=== PATIENT | male | born 1940 | race Caucasian/White ===

== ENCOUNTER → 2018-05-20 | Outpatient (CLI) | payer MEDICARE, BC ==
[~2018-05-20] MED LIST: ACIDOPHILUS1 EAC4 PO; CIPRO500 MG PO; COZAAR 50 MG TA50 M1 PO; FLAGYL500 MG PO; FLEXERIL PO; HYDROCODONE-AP1 EAC6 PO; MIRALAX17 GM PO; NICOTINE TRANSD21 M1 TRANSDERM; NORCO 5-325 TA1 EACH PO
== END ==
LOC: M.LAB 07:05 → M.MRI 08:30
DX: M47.26 Other spondylosis with radiculopathy, lumbar region (principal); M48.061 Spinal stenosis, lumbar region without neurogenic claudication; M51.26 Other intervertebral disc displacement, lumbar region

== ENCOUNTER 2018-09-25 10:05 | Inpatient (IN) | payer MEDICARE, BC ==
[~2018-09-25] VITALS: Ht 185.4 cm; Wt 99.3 kg
[2018-09-25 10:10] VITALS: BP 155/70
[2018-09-25] MEDS ORDERED: SINGULAIR 10 MG10 MG PO (10:15)
[2018-09-25] MEDS ORDERED: SYMBICORT160 MCG/4. INH (10:16)
[2018-09-25] MEDS ORDERED: AUGMENTIN 875-1 EACH PO (10:16)
[2018-09-25 10:33] LABS: HEMATOCRIT 39.2 % (42.0-52.0); HEMOGLOBIN 12.9 gm/dL (14.0-18.0); MCH 30.2 pg (26.0-34.0); MCHC 32.8 g/dL (28.0-37.0); NUCLEATED RBCS 0 /100WBC; PLATELET COUNT* 322 thou/uL (150-400); RBC 4.26 mil/uL (4.50-6.00); RDW-CV 14.6 % (10.5-14.5)
[2018-09-25 10:42] LABS: ANION GAP 8 mmol/L (7-16); BUN 22 mg/dL (7-18); CALCIUM 8.3 mg/dL (8.5-10.1); CHLORIDE 101 mmol/L (98-107); CO2 27 mmol/L (21-32); CREATININE 1.1 mg/dL (0.6-1.3); GLUCOSE 108 mg/dL (70-99); POTASSIUM 4.3 mmol/L (3.5-5.1); SODIUM 136 mmol/L (136-145)
[2018-09-25 10:52] LABS: BE 0.5 mmol/L (-2 to +3); PCO2 36.3 mmHg (35.0-45.0); pH 7.443 (7.340-7.450)
[2018-09-25 10:56] LABS: ALKALINE PHOSPHATASE 84 U/L (46-116); NT-PRO BRAIN NAT PEPTIDE 5163 pg/mL (<300); SGOT 18 U/L (15-37); SGPT 24 U/L (30-65); TOTAL BILIRUBIN 0.5 mg/dL (<0.1-1.0); TOTAL PROTEIN 6.4 g/dL (6.4-8.2); TROPONIN-I LEVEL <0.06 ng/mL (<0.06)
[2018-09-25 11:25] LABS: ABSOLUTE BASOPHILS 0.2 thou/uL (0.0-0.2); ABSOLUTE LYMPHOCYTES 1.8 thou/uL (0.8-5.3); ABSOLUTE MONOCYTES 1.8 thou/uL (0.0-1.2); ABSOLUTE NEUTROPHILS 19.1 thou/uL (1.6-8.1); METAMYELOCYTES 2 %
[2018-09-25 11:26] LABS: LARGE PLATELETS OCCASIONAL; PLATELET ESTIMATE ADEQUATE
[2018-09-25 11:27] LABS: MICROCYTES 1+; TOXIC GRANULATION 3+
--- NOTE | 2018-09-25 17:41 | EKG ---
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 : 1940 Requested By: Renetta Romano Order Number: [id number] MD: Reggie Vieira Measurements Intervals [place] Rate: 88 P: -56 [place]: 158 QRS: 49 QRSD: 93 T: 42 QT: 353 QTc: 427 Interpretive Statements Sinus rhythm with frequent and consecutive premature atrial complexes Left ventricular hypertrophy Compared to ECG 12/30/2016 12:12:01 Left ventricular hypertrophy now present Ectopic atrial rhythm no longer present Myocardial infarct finding no longer present ST (T wave) deviation no longer present Electronically Signed On 09-25-2018 17:41:01 CDT by Reggie Vieira [email or web address] <ELECTRONICALLY SIGNED> By: Reggie Vieira MD, FACC 09/25/18 1741 1011 1011 Reggie Vieira MD, FAC /EPI
[2018-09-25 17:49] VITALS: BP 113/92
[2018-09-25 18:47] VITALS: BP 134/68
[2018-09-25 20:00] VITALS: BP 124/62
[2018-09-25 23:57] VITALS: BP 131/66
[2018-09-26] VITALS (7 sets, daily range): BP systolic 120–153; BP diastolic 61–93
[2018-09-26 03:58] LABS: URINE BILIRUBIN NEGATIVE (Negative); URINE BLOOD NEGATIVE (Negative); URINE CLARITY CLEAR; URINE COLOR YELLOW; URINE GLUCOSE-RANDOM NEGATIVE (Negative); URINE KETONES TRACE (Negative); URINE LEUKOCYTES-REFLEX NEGATIVE (Negative); URINE NITRITE-REFLEX NEGATIVE (Negative); URINE PROTEIN TRACE (Negative); URINE SPECIFIC GRAVITY >= 1.030 (1.005-1.030); URINE UROBILINOGEN 0.2 E.U./dl (0.2-1.0)
[2018-09-26 11:39] LABS: ABSOLUTE LYMPHOCYTES 1.1 thou/uL (0.8-5.3); ABSOLUTE MONOCYTES 0.9 thou/uL (0.0-1.2); ABSOLUTE NEUTROPHILS 16.3 thou/uL (1.6-8.1); BASOPHILS 0.2 %; EOSINOPHILS 0.1 %; HEMATOCRIT 37.7 % (42.0-52.0); HEMOGLOBIN 11.8 gm/dL (14.0-18.0); MCH 29.5 pg (26.0-34.0); MCHC 31.3 g/dL (28.0-37.0); MCV 94.2 fL (80.0-100.0); MPV 10.9 fl. (7.2-11.1); NUCLEATED RBCS 0 /100WBC; PLATELET COUNT* 303 thou/uL (150-400); POLYS 88.7 %; RDW-CV 14.6 % (10.5-14.5); WBC 18.4 thou/uL (4.0-11.0)
[2018-09-26 11:43] LABS: CALCIUM 8.5 mg/dL (8.5-10.1); CREATININE 1.2 mg/dL (0.6-1.3); MAGNESIUM 1.9 mg/dL (1.8-2.4); POTASSIUM 4.8 mmol/L (3.5-5.1)
--- NOTE | 2018-09-26 16:12 | 2DMMODE ---
[place] [address] 2 D/M-MODE ECHOCARDIOGRAM Name: MARCELLO CARLIN Room: [address] IN [facility]#: [id number] Admission: 09/25/18 Attend Phys: Cosme Nation Discharge: Date of : 36 Date of Service: 09/26/18 1611 Report #: [id number] THIS REPORT FOR: //name// APPROVED REPORT Study performed: 09/26/2018 14:10:17 EXAM: Comprehensive 2D, Doppler, and color-flow Echocardiogram Patient Location: In-Patient Room #: [facility] Status: routine BSA: 2.12 HR: 72 bpm BP: 133/61 mmHg Rhythm: NSR Other Information Study Quality: Adequate Indications Congestive Heart Failure 2D Dimensions IVSd: 10.67 (7-11mm) LVOT Diam: 21.05 (18-24mm) LVDd: 53.36 mm PWd: 12.30 (7-11mm) Ascending Ao: 36.82 (22-36mm) LVDs: 30.86 (25-40mm) Aortic Root: 41.24 mm Volumes Left Atrial Volume (Systole) LA ESV Index: 31.70 mL/m2 Aortic Valve AoV Peak Hawk.: 1.29 m/s AO Peak Gr.: 6.65 mmHg LVOT Max P.67 mmHg AO Mean Gr.: 3.77 mmHg LVOT Mean P.96 mmHg LVOT Max V: 1.08 m/s AO V2 VTI: 25.66 cm LVOT Mean V: 0.64 m/s YANNA (VTI): 3.03 cm2 LVOT V1 VTI: 22.37 cm Mitral Valve E/A Ratio: 0.86 MV Decel. Time: 215.95 ms MV E Max Hawk.: 0.79 m/[place] [address] 2 D/M-MODE ECHOCARDIOGRAM Name: MARCELLO CARLIN Room: [address] IN .R.#: [id number] Admission: 09/25/18 Attend Phys: Cosme Nation Discharge: Date of : 36 Date of Service: 09/26/18 1611 Report #: [id number] MV PHT: 62.62 ms MVA (PHT): 3.51 cm2 TDI E/Lateral E': 8.78 E/Medial E': 9.88 Medial E' Hawk.: 0.08 m/s Lateral E' Hawk.: 0.09 m/s Pulmonary Valve PV Peak Hawk.: 0.91 m/s PV Peak Gr.: 3.33 mmHg Left Ventricle The left ventricle is normal size. There is normal LV segmental wall motion. There is normal left ventricular wall thickness. Left ventricular systolic function is normal. The left ventricular ejection fraction is within the normal range. LVEF is 55-60%. The left ventricular diastolic function is normal. Right Ventricle The right ventricle is normal size. The right ventricular systolic function is normal. Atria Left atrium is mildly dilated. The right atrium size is normal. Aortic Valve The Aortic valve is sclerotic. Trace aortic regurgitation. There is no aortic valvular stenosis. Mitral Valve The mitral valve is normal in structure. There is no mitral valve regurgitation noted. No evidence of mitral valve stenosis. Tricuspid Valve The tricuspid valve is normal in structure. Trace tricuspid regurgitation. Unable to assess PA pressure. Pulmonic Valve The pulmonary valve is normal in structure. Trace pulmonic regurgitation. Great Vessels Aortic root is mildly dilated. IVC is normal in size and collapses >50% [place] [address] 2 D/M-MODE ECHOCARDIOGRAM Name: MARCELLO CARLIN Room: [address] IN [facility]#: [id number] Admission: 09/25/18 Attend Phys: Cosme Nation Discharge: Date of : 36 Date of Service: 09/26/18 1611 Report #: [id number] Pericardium There is no pericardial effusion. <Conclusion> LVEF is 55-60%. Left atrium is mildly dilated. The Aortic valve is sclerotic. <ELECTRONICALLY SIGNED> By: Jaron Tang MD, [facility] 09/26/181610 10 10 Jaron Tang MD, [facility] /INF
[2018-09-27] VITALS: BP 121/59
[2018-09-27 04:00] VITALS: BP 147/73
[2018-09-27 05:00] LABS: ABSOLUTE BASOPHILS 0.1 thou/uL (0.0-0.2); ABSOLUTE LYMPHOCYTES 1.6 thou/uL (0.8-5.3); ABSOLUTE MONOCYTES 2.2 thou/uL (0.0-1.2); ABSOLUTE NEUTROPHILS 17.5 thou/uL (1.6-8.1); BASOPHILS 0.6 %; EOSINOPHILS 0.2 %; HEMATOCRIT 37.2 % (42.0-52.0); HEMOGLOBIN 12.1 gm/dL (14.0-18.0); LYMPHOCYTES 7.6 %; MCH 30.1 pg (26.0-34.0); MCHC 32.4 g/dL (28.0-37.0); MONOCYTES 10.4 %; MPV 10.4 fl. (7.2-11.1); NUCLEATED RBCS 0 /100WBC; PLATELET COUNT* 313 thou/uL (150-400); POLYS 81.2 %; RDW-CV 14.2 % (10.5-14.5); WBC 21.5 thou/uL (4.0-11.0)
[2018-09-27 07:00] VITALS: BP 138/74
--- NOTE | 2018-09-27 09:49 | CON ---
[address] [address] CONSULTATION Name: MARCELLO CARLIN Room: [address] IN M.R.#: [id number] Admission: 09/25/18 Attend Phys: Robyn Tan Discharge: Date of : 36 Report #: [id number] THIS REPORT FOR: //name// CC: Kailash Elio Cosme Nation DATE OF SERVICE: 09/26/2018 INFECTIOUS DISEASE CONSULTATION ATTENDING PHYSICIAN: Cosme Nation M.D. REASON FOR EVALUATION: Left-sided pneumonitis. HISTORY OF PRESENT ILLNESS: Chart reviewed, the patient examined. This is a 77-year-old, known history of COPD, long time smoker, who presented to the Emergency Room with progressive dyspnea and weakness. He has had a cough productive of some yellowish sputum. It is not clear that he has had any significant fevers, although he has had low-grade temperature elevations while here. He was evaluated and was found to be borderline hypoxemic. Chest x-ray showed evidence of left-sided patchy infiltrates that were fairly extensive. He was presumptively diagnosed with bacterial pneumonitis, placed on combination antimicrobial therapy with levofloxacin as well as piperacillin and tazobactam. He states he feels moderately improved from his admission. He is maintained on supplemental oxygen at 2 liters per nasal cannula. ALLERGIES: None known. CURRENT MEDICATIONS: Include losartan, acetylcysteine, montelukast, hydrocodone, Zosyn, ipratropium, albuterol inhaler and levofloxacin. PAST MEDICAL HISTORY: Underlying COPD and history of hypertension, has had previous back surgery. SOCIAL HISTORY: He smokes half to one pack per day for the last 50-60 years. No illicit drug use. He has regular ethanol up to 2-3 beers a day. He notes he is still working. FAMILY HISTORY: Noncontributory. REVIEW OF SYSTEMS: Otherwise, unremarkable 10-point review of systems, with the exception of the above. He does have some anorexia with some weight loss overtime. PHYSICAL EXAMINATION: GENERAL: He is alert, cooperative. He is in [id number] [address] CONSULTATION Name: MARCELLO CARLIN Donell Room: [address] IN [facility]#: [id number] Admission: 09/25/18 Attend Phys: Robyn Tan Discharge: Date of : 38 Report #: [id number] secondary to respiratory difficulty. He appears to be generally lucid, mildly chronically ill appearing. VITAL SIGNS: Temperature 97.4, pulse 79, respirations 20 and blood pressure 125/61. SKIN: Warm, dry. No rashes. HEENT: Normocephalic. Extraocular muscles intact. NECK: Supple. LUNGS: Diminished to some extent overall, few scattered coarse breath sounds. HEART: Regular. He has a soft systolic murmur. ABDOMEN: Soft, nontender and nondistended. EXTREMITIES: Without cyanosis. GENITOURINARY: Deferred. RECTAL: Deferred. LABORATORY DATA: Initial chest x-ray as described above, patchy left-sided infiltrate consistent with pneumonitis. ABGs: A pH of 7.443, pCO2 of 36.3 and pO2 of 67.0 on 2 liters. Lactic acid 1.4. Electrolytes: Sodium 136, potassium 4.3, chloride 101, bicarbonate 27, anion gap of 8 and BUN and creatinine 22 and 1.1. LFTs unremarkable. Total protein 64. Albumin of 2.0. CBC: White count initially 23, H and H 12.9 and 39.2 and platelets of 322,000, neutrophilia and monocytosis. Repeat CBC today showed a white count down to 18.4, H and H 11.8 and 37.7. Prealbumin of 10.1. Blood cultures sterile thus far. Urinalysis otherwise unremarkable. ASSESSMENT AND PLAN: Left-sided pneumonitis, certainly likely bacterial etiology. We will continue empiric antimicrobial therapy. We would not expect multiple-resistant organism that will try to back off fairly quickly. He has not had a Pneumovax. He has been on several therapies. Other antigens will be helpful. We will do an MRSA just to confirm. He states he is feeling better. We will wean off support as allowed. <ELECTRONICALLY SIGNED> By: Pillo Edge MD 09/27/18 0949 1350 [id number] Edge MD /nt
[2018-09-27 12:00] VITALS: BP 130/76
[2018-09-27 16:26] VITALS: BP 143/65
[2018-09-27 20:00] VITALS: BP 140/56
[2018-09-28] VITALS (7 sets, daily range): BP systolic 101–144; BP diastolic 45–84
[2018-09-28 12:35] LABS: HEMATOCRIT 39.2 % (42.0-52.0); HEMOGLOBIN 12.7 gm/dL (14.0-18.0); MCH 29.8 pg (26.0-34.0); MCHC 32.3 g/dL (28.0-37.0); MCV 92.2 fL (80.0-100.0); MPV 10.5 fl. (7.2-11.1); NUCLEATED RBCS 0 /100WBC; PLATELET COUNT* 294 thou/uL (150-400); RBC 4.25 mil/uL (4.50-6.00); RDW-CV 14.4 % (10.5-14.5); WBC 20.7 thou/uL (4.0-11.0)
[2018-09-28 12:42] LABS: ALBUMIN 2.1 g/dL (3.4-5.0); CALCIUM 8.5 mg/dL (8.5-10.1); CREATININE 1.2 mg/dL (0.6-1.3); POTASSIUM 3.6 mmol/L (3.5-5.1); TOTAL BILIRUBIN 0.7 mg/dL (<0.1-1.0); TOTAL PROTEIN 6.2 g/dL (6.4-8.2)
[2018-09-28 13:29] LABS: ESR (SEDRATE) 25 mm/hr (0-20)
[2018-09-28 13:30] LABS: ABSOLUTE MONOCYTES 2.3 thou/uL (0.0-1.2); ABSOLUTE NEUTROPHILS 17.4 thou/uL (1.6-8.1)
[2018-09-28 13:31] LABS: PLATELET ESTIMATE ADEQUATE
[2018-09-29] VITALS: BP 107/55
[2018-09-29 04:00] VITALS: BP 138/63
[2018-09-29 05:10] LABS: HEMATOCRIT 38.1 % (42.0-52.0); HEMOGLOBIN 12.3 gm/dL (14.0-18.0); MCHC 32.4 g/dL (28.0-37.0); MCV 92.6 fL (80.0-100.0); MPV 11.3 fl. (7.2-11.1); RBC 4.12 mil/uL (4.50-6.00); RDW-CV 14.3 % (10.5-14.5); WBC 21.3 thou/uL (4.0-11.0)
[2018-09-29 05:38] LABS: CALCIUM 8.8 mg/dL (8.5-10.1); CREATININE 1.2 mg/dL (0.6-1.3); MAGNESIUM 1.8 mg/dL (1.8-2.4); POTASSIUM 3.6 mmol/L (3.5-5.1)
[2018-09-29 07:10] VITALS: BP 117/62
--- NOTE | 2018-09-29 10:49 | CON ---
[address] [address] CONSULTATION Name: MARCELLO CARLIN Room: [address] IN M.R.#: [id number] Admission: 09/25/18 Attend Phys: Robyn Tan Discharge: Date of : 38 Report #: [id number] THIS REPORT FOR: //name// CC: Kailash Elio Cosme Nation DATE OF SERVICE: 09/27/2018 REASON FOR EVALUATION: Severe pneumonia, cough, hypoxemia. HISTORY OF PRESENT ILLNESS: History obtained from the chart, from the patient and his and records. He is a 77-year-old gentleman known to have COPD. He presented with progressive dyspnea, cough. His cough was productive of yellow mucus. Initially, he went to outpatient care; however, he stayed home for 5 days with progressive symptoms with worsening shortness of breath and cough. The cough is productive of yellow mucus. He is currently on oxygen with nasal cannula. He denies any hemoptysis. Denies night sweats. He feels that his cough is better. He is currently on treatment with Zosyn and Levaquin. He is on 2 liters nasal cannula. History noted also for drinking alcohol around 2 beers a day. Denies any history of dysphagia. ALLERGIES: None. HOME MEDICATIONS: Reviewed including Singulair, hydrocodone, Zosyn, these are current medications. Levaquin, losartan. PAST MEDICAL HISTORY: COPD, hypertension. PAST SURGICAL HISTORY: Back surgery. SOCIAL HISTORY: Smokes 1/2 a pack per day for the last 60 years. Regular alcohol of 3 beers a day. FAMILY HISTORY: Noncontributory. REVIEW OF SYSTEMS: A 12-point review of systems significant for lower extremity joint pain. Denies night sweats; however, had some anorexia with associated pneumonia. Has alcohol use, has shortness of breath with history of COPD, otherwise 14-point review of systems as above. PHYSICAL EXAMINATION: GENERAL: The patient is pleasant, not in distress. VITAL SIGNS: Noted. He is currently on 1 liter. He is afebrile. His blood pressure is 138/74. Oxygen saturation was 94%. HEAD AND NECK: Neck supple. Oral mucosa clear. CHEST: Has equal breath sounds. No wheezing[place] [address] CONSULTATION Name: MARCELLO CARLIN Donell Room: [address] IN [facility].#: [id number] Admission: 09/25/18 Attend Phys: Robyn Tan Discharge: Date of : 38 Report #: [id number] CARDIOVASCULAR: Regular rhythm. ABDOMEN: Soft, nontender. EXTREMITIES: No significant edema or swelling. PSYCHIATRIC: Alert, oriented. NEUROLOGIC: No focal deficit. SKIN: No changes. JOINTS: No deformity noted. LABORATORY DATA AND OTHER DATABASE: Chest x-ray, which I have reviewed, showed left-sided patchy infiltrate. Chest CT, which I reviewed as well showed emphysematous changes. He has necrotizing infiltrate in the left upper lobe, extensive. Associated consolidation with cavitary lesion. Enlarged mediastinal lymph nodes with largest measuring 3 cm in prevascular space. He has cavitary lesion measuring 3.1 cm. Other labs, white blood cell count 21.5. On 09/25/2018, it was 23,000, hemoglobin 12. His creatinine 1.2. MRSA of the nares is pending. ASSESSMENT AND PLAN: 1. Community-acquired pneumonia, necrotizing, cavitary. At this time, he is on Levaquin and Zosyn, cannot exclude methicillin-resistant Staphylococcus aureus. Recommend while waiting for culture to add vancomycin. Differential diagnosis, suspect related to aspiration. The patient has history of alcohol abuse, likely may need speech evaluation. 2. Chronic obstructive pulmonary disease, currently not in exacerbation. Recommended nebulizer treatment. Currently shows clinical improvement. Recommend to continue to monitor white blood cell counts. 3. With the clinical improvement, other alternative, etiology is less likely. With severe cavitary lesion, may need treatment similar to lung abscess with prolonged antibiotic treatment as per ID. This was discussed with the patient and his . <ELECTRONICALLY SIGNED> By: Suri Arevalo MD 09/29/18 1049 1247 [id number] Arevalo MD /nt
[2018-09-29 11:52] VITALS: BP 101/41
[2018-09-29 16:49] VITALS: BP 125/50
[2018-09-29 20:00] VITALS: BP 118/51
[2018-09-30] VITALS: BP 118/56
[2018-09-30 04:00] VITALS: BP 115/64; BP 95/60
[2018-09-30 07:10] VITALS: BP 111/93
[2018-09-30 13:43] VITALS: BP 120/86
[2018-09-30 18:38] VITALS: BP 115/60
[2018-09-30 20:00] VITALS: BP 103/70
[2018-10-01] VITALS: BP 122/92
[2018-10-01 04:00] VITALS: BP 123/51
[2018-10-01 05:12] LABS: HEMATOCRIT 33.8 % (42.0-52.0); HEMOGLOBIN 11.5 gm/dL (14.0-18.0); MCH 31.6 pg (26.0-34.0); MCHC 33.9 g/dL (28.0-37.0); MCV 93.1 fL (80.0-100.0); MPV 11.2 fl. (7.2-11.1); RBC 3.63 mil/uL (4.50-6.00); RDW-CV 14.5 % (10.5-14.5); WBC 23.1 thou/uL (4.0-11.0)
[2018-10-01 05:20] LABS: ALBUMIN 1.8 g/dL (3.4-5.0); CALCIUM 8.2 mg/dL (8.5-10.1); CREATININE 1.3 mg/dL (0.6-1.3); MAGNESIUM 1.8 mg/dL (1.8-2.4); POTASSIUM 3.7 mmol/L (3.5-5.1); TOTAL BILIRUBIN 0.5 mg/dL (<0.1-1.0); TOTAL PROTEIN 5.9 g/dL (6.4-8.2)
[2018-10-01 08:00] VITALS: BP 115/54
--- NOTE | 2018-10-01 11:22 | EKG ---
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 : 1940 Requested By: Renny Cota Order Number: [id number] Reading MD: Jaron Tang Measurements Intervals [place] Rate: 111 P: MO: QRS: 55 QRSD: 93 T: 174 QT: 349 QTc: 474 Interpretive Statements Atrial fibrillation Anteroseptal infarct, old Repol abnrm suggests ischemia, anterolateral Compared to ECG 09/25/2018 10:11:48 Sinus rhythm no longer present Left ventricular hypertrophy no longer present Electronically Signed On 10-01-2018 11:22:08 CDT by Jaron Tang [email or web address] <ELECTRONICALLY SIGNED> By: Jaron Tang MD, FAC 10/01/18 1122 1616 1616 Jaron Tang MD, [facility] /EPI
[2018-10-01 12:08] VITALS: BP 116/47
[2018-10-01 15:48] VITALS: BP 100/52
[2018-10-01 20:00] VITALS: BP 121/54
[2018-10-02] VITALS: BP 134/65
[2018-10-02 04:00] VITALS: BP 133/63
[2018-10-02 04:50] LABS: ABSOLUTE BASOPHILS 0.2 thou/uL (0.0-0.2); ABSOLUTE EOSINOPHILS 0.3 thou/uL (0.0-0.7); ABSOLUTE LYMPHOCYTES 1.1 thou/uL (0.8-5.3); ABSOLUTE MONOCYTES 2.2 thou/uL (0.0-1.2); ABSOLUTE NEUTROPHILS 11.9 thou/uL (1.6-8.1); BASOPHILS 1.2 %; EOSINOPHILS 1.9 %; HEMOGLOBIN 10.6 gm/dL (14.0-18.0); LYMPHOCYTES 6.8 %; MCV 93.7 fL (80.0-100.0); MONOCYTES 13.8 %; NUCLEATED RBCS 0 /100WBC; PLATELET COUNT* 342 thou/uL (150-400); POLYS 76.3 %; RBC 3.63 mil/uL (4.50-6.00); RDW-CV 14.7 % (10.5-14.5); WBC 15.6 thou/uL (4.0-11.0)
[2018-10-02 05:30] LABS: ALBUMIN 1.7 g/dL (3.4-5.0); ALKALINE PHOSPHATASE 66 U/L (46-116); ANION GAP 3 mmol/L (7-16); BUN 30 mg/dL (7-18); CALCIUM 8.7 mg/dL (8.5-10.1); CHLORIDE 102 mmol/L (98-107); CHOLESTEROL 89 mg/dL (<200); CO2 33 mmol/L (21-32); CREATININE 1.4 mg/dL (0.6-1.3); GLUCOSE 98 mg/dL (70-99); HDL CHOLESTEROL 24 mg/dL (>40); LDL CHOLESTEROL 58 mg/dL (<100); MAGNESIUM 1.8 mg/dL (1.8-2.4); POTASSIUM 4.7 mmol/L (3.5-5.1); SGOT 15 U/L (15-37); SGPT 19 U/L (30-65); SODIUM 138 mmol/L (136-145); TC:HDL 3.7 Ratio (Not establshd); TOTAL BILIRUBIN 0.4 mg/dL (<0.1-1.0); TOTAL PROTEIN 5.7 g/dL (6.4-8.2); TRIGLYCERIDE 37 mg/dL (<150); VLDL 7 mg/dL (<40)
[2018-10-02 05:36] LABS: SERUM ASSESSMENT CLEAR
[2018-10-02 08:00] VITALS: BP 120/60
[2018-10-02 11:30] VITALS: BP 132/59
--- NOTE | 2018-10-02 13:04 | EKG ---
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: : 1940 Requested By: Jaron Tang Order Number: [id number] MD: Reggie Vieira Measurements Intervals [place] Rate: 53 P: -47 [place]: 201 QRS: 63 QRSD: 104 T: 79 QT: 487 QTc: 458 Interpretive Statements Sinus or ectopic atrial rhythm Consider left atrial enlargement Compared to ECG 09/30/2018 16:16:46 Ectopic atrial rhythm now present Atrial fibrillation no longer present Myocardial infarct finding no longer present Possible ischemia no longer present Electronically Signed On 10-02-2018 13:04:41 CDT by Reggie Vieira [email or web address] <ELECTRONICALLY SIGNED> By: Reggie Vieira MD, FAC 10/02/18 1304 0857 0857 Reggie Vieira MD, [facility] /EPI
--- NOTE | 2018-10-02 16:07 | CON ---
[address] [address] CONSULTATION Name: MARCELLO CARLIN Room: [address] IN M.R.#: [id number] Admission: 09/25/18 Attend Phys: Robyn Tan Discharge: Date of : 38 Report #: [id number] THIS REPORT FOR: //name// CC: Kailash Ballard DO Cosme Nation DATE OF SERVICE: 10/01/2018 CARDIOLOGY CONSULTATION HISTORY OF PRESENT ILLNESS: The patient is a 77-year-old white male who I was asked to see in the hospital today after he was noted to be in atrial fibrillation. The history is obtained from the patient as well as his who was present. The patient denies previous history of heart disease. He was doing well until about 5 days ago, he developed increasing shortness of breath and a cough. His brought him to the Emergency Room last week and he was admitted. He was felt to have bronchitis. He was placed on antibiotics. He was doing well until last night, he went into atrial fibrillation with rapid ventricular response rate. He was started on IV Cardizem. I was asked to see him for further evaluation and treatment. He denies history of myocardial infarction, chest pain or heart murmur. He does have chronic swelling of his feet that improves when he elevates his feet at night. Denied leg pain. He denied any palpitations last night or lightheadedness. PAST MEDICAL HISTORY: He has had previous back surgery. He has a history of hypertension. No history of diabetes. MEDICATIONS ON ADMISSION: Consisted of nicotine patch, Singulair inhaler, Symbicort, losartan. ALLERGIES: He has no known drug allergies. FAMILY HISTORY: His mother and father had stroke. SOCIAL HISTORY: He is . He and his live in [place]. He smokes 1/2 pack of cigarettes a day, used to smoke a pack of cigarettes a day. No alcohol abuse. 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 REVIEW OF SYSTEMS: He denies history of stroke, peptic ulcer disease, liver disease, kidney disease, cancer, psychiatric illness or chronic skin condition. PHYSICAL EXAMINATION: GENERAL: Revealed an elderly male, lying in bed. He appeared in no distress. VITAL SIGNS: He had a blood pressure of 120/60, pulse 60 and irregular. [place] [address] CONSULTATION Name: MARCELLO CARLIN Donell Room: [address]#: [id number] Admission: 09/25/18 Attend Phys: Robyn Tan Discharge: Date of : 38 Report #: [id number] HEENT: He is anicteric. Conjunctivae pink. Mucous members moist. NECK: Neck veins do not appear distended. No carotid bruits. Neck supple. CHEST: Clear to auscultation. CARDIOVASCULAR: Irregular rhythm. No significant murmur. ABDOMEN: Soft. EXTREMITIES: Had 1+ edema below the mid tibial area. Dorsalis pedis pulse cannot be palpated. SKIN: Cool and dry. NEUROLOGIC: Nonfocal. LYMPH: No adenopathy. MUSCULOSKELETAL: No joint effusion. His ECG on admission a week ago showed a sinus rhythm, occasional PVC, occasional PAC, nonspecific ST segment change. His ECG last night showed atrial fibrillation with an increased ventricular response rate. His workup so far, he actually had an echocardiogram done last week that showed ejection fraction 60%, left atrial enlargement, aortic sclerosis. His chest x-ray on admission showed a left lung infiltrate consistent with pneumonia. CT scan of the chest was performed without contrast that showed pneumonia in the left upper lobe, small left effusion, coronary artery calcification. LABORATORY DATA: Sodium 141, creatinine 1.3, albumin is only 1.8. Troponin 0.06. BNP 5163. White blood cell count 23,000, hematocrit 33.8. IMPRESSION AND RECOMMENDATIONS: 1. Pneumonia. 2. Atrial fibrillation. I would recommend starting sotalol and anticoagulation. 3. Chronic obstructive pulmonary disease. 4. Tobacco abuse. 5. Hypertension. The patient is on an ARB. <ELECTRONICALLY SIGNED> By: Jaron Tang MD, [facility] 10/02/18 1607 1417 0837Davidelores Tang MD, [facility] /nt
[2018-10-02 16:30] VITALS: BP 143/62
[2018-10-02 20:00] VITALS: BP 163/73
[2018-10-03] VITALS: BP 143/64
[2018-10-03 04:00] VITALS: BP 128/53
[2018-10-03 04:33] LABS: HEMATOCRIT 33.6 % (42.0-52.0); HEMOGLOBIN 10.5 gm/dL (14.0-18.0); MCH 29.2 pg (26.0-34.0); MCHC 31.2 g/dL (28.0-37.0); MCV 93.9 fL (80.0-100.0); MPV 10.9 fl. (7.2-11.1); RBC 3.58 mil/uL (4.50-6.00); RDW-CV 14.6 % (10.5-14.5); WBC 17.3 thou/uL (4.0-11.0)
[2018-10-03 05:03] LABS: CALCIUM 8.7 mg/dL (8.5-10.1); CREATININE 1.4 mg/dL (0.6-1.3); MAGNESIUM 1.9 mg/dL (1.8-2.4); POTASSIUM 4.5 mmol/L (3.5-5.1)
[2018-10-03 07:50] VITALS: BP 129/50
--- NOTE | 2018-10-03 10:51 | EKG ---
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 : 1940 Requested By: Jaron Tang Order Number: [id number] MD: Jaron Tang Measurements Intervals [place] Rate: 54 P: -42 [place]: 219 QRS: 57 QRSD: 100 T: 74 QT: 471 QTc: 447 Interpretive Statements Sinus rhythm Atrial premature complex Compared to ECG 10/02/2018 08:57:28 Atrial premature complex(es) now present Ectopic atrial bradycardia no longer present Electronically Signed On 10-03-2018 10:51:25 CDT by Jaron Tang [email or web address] <ELECTRONICALLY SIGNED> By: Jaron Tang MD, [facility] 10/03/18 1051 0418 0418 Jaron Tang MD, [facility] /EPI
[2018-10-03 12:40] VITALS: BP 129/50
[2018-10-03 12:44] VITALS: BP 130/62
[2018-10-03] MEDS ORDERED: ASPIRIN EC325 MG PO (12:51)
[2018-10-03] MEDS ORDERED: VITAMIN D1000 UNI1 PO (15:59)
[2018-10-03] MEDS ORDERED: VITAMINC500 PO (15:59)
[2018-10-03] MEDS ORDERED: NICOTINE TRANSD14 M1 TRANSDERM (16:00)
[2018-10-03] MEDS ORDERED: SORINE 80 MG TA80 M1 PO (16:01)
[2018-10-03 16:09] VITALS: BP 137/54
== END 2018-10-03 16:15 | disposition home or self-care (01) | DRG 177 ==
LOC: M.ERS 10:05 → M.2W 11:29 → M.TBA-ER 11:29 → M.2W 17:37
PROVIDERS: Family Medicine; Internal Medicine; Internal Medicine Cardiovascular Disease; Internal Medicine Critical Care Medicine; Nurse Practitioner Family; ADMIT Internal Medicine
DX: J15.6 Pneumonia due to other Gram-negative bacteria (principal); J96.01 Acute respiratory failure with hypoxia; E43 Unspecified severe protein-calorie malnutrition; J44.1 Chronic obstructive pulmonary disease with (acute) exacerbation; J44.0 Chronic obstructive pulmonary disease with (acute) lower respiratory infection; R65.10 Systemic inflammatory response syndrome (SIRS) of non-infectious origin without acute organ dysfunction; I87.8 Other specified disorders of veins; I10 Essential (primary) hypertension; F17.210 Nicotine dependence, cigarettes, uncomplicated; I48.91 Unspecified atrial fibrillation; D64.9 Anemia, unspecified; Z68.28 Body mass index [BMI] 28.0-28.9, adult; Z82.3 Family history of stroke; Z79.899 Other long term (current) drug therapy

== ENCOUNTER → 2020-02-02 | Outpatient (CLI) | payer MEDICARE, BC ==
[~2020-02-02] MED LIST changes: +ASPIRIN EC325 MG PO; +AUGMENTIN 875-1 EACH PO; +NICOTINE TRANSD14 M1 TRANSDERM; +SINGULAIR 10 MG10 MG PO; +SORINE 80 MG TA80 M1 PO; +SYMBICORT160 MCG/4. INH; +VITAMIN D1000 UNI1 PO; +VITAMINC500 PO
[2020-02-02 08:18] LABS: CREATININE 1.5 mg/dL (0.6-1.3)
== END ==
LOC: M.CT 01-25 10:07 → M.LAB 07:47 → M.CT 09:00
PROVIDERS: ATTEND Family Medicine
DX: J44.9 Chronic obstructive pulmonary disease, unspecified (principal); J98.4 Other disorders of lung; J98.11 Atelectasis

== ENCOUNTER → 2020-02-16 | Outpatient (CLI) | payer MEDICARE, BC ==
[~2020-02-16] MED LIST changes: +ASA81BEC PO; +COZAAR 25 MG TA25 M1 PO; +ELIQUIS5 MG PO; +FLOMAX0.4 MG PO; +LIPITOR80 MG PO; +METOPROLOL TART25 MG PO; +TRAMADOL 50 MG50 MG PO
--- NOTE | 2020-03-08 14:36 | PAINCON ---
[address] [address] PAIN MANAGEMENT CONSULTATION Name: MARCELLO CARLIN Room: [facility] RobynDorothy#: [id number] Admission: 02/16/20 Attend Phys: Nanci Rosario MD Discharge: Date of : 38 Report #: [id number] THIS REPORT FOR: //name// cc: Kailash Ballard John E. DO ~ CC: Kailash Wright DATE OF SERVICE: 02/16/2020 CHIEF COMPLAINT: Leg pain and other joint pain. HISTORY: The patient is an 79-year-old gentleman who has been referred to the Pain Clinic. The patient has pain in a number of areas. He has pain in his knees bilaterally. He has shoulder pain. He has left ankle pain as well as bilateral hip pain. Pain has been problematic since 2007. He has had back surgery in the past. He feels that his pain has been getting worse over the last few months. He has had blood flow problems in his left leg. He has had a left femoral to tibial artery bypass in 2019. Some of the pain in the low back and bilateral hip areas can be some of the more disconcerting pain. Pain is worse with exertion and when he walks short distances. He describes his pain and discomfort as severe. He feels overall that they have continued to progress and are worsening. PAST MEDICAL HISTORY: Chronic bronchitis, polyosteoarthritis, left foot pain, acute kidney failure, anemia, thyroid disorder, atrial fibrillation, hypertension, peripheral artery disease, calcification of the coronary artery score greater than 400, former smoker, lumbar spinal stenosis, post-laminectomy syndrome of the lumbar spine. PAST SURGICAL HISTORY: Back surgery was in 2009, ____, bypass, arterial femoral bypass on 04/21/2019. ALLERGIES: No known drug allergies. CURRENT MEDICATIONS: Aspirin 81 mg, Symbicort 160/4.5 two puffs b.i.d., tiotropium bromide 2.5 mcg inhalation 2 puffs, Eliquis 5 mg b.i.d., Lipitor 80 mg, metoprolol 12.5 mg, Flomax 0.4 mg, losartan 25 mg. REVIEW OF SYSTEMS: Wears glasses, shortness of breath with walking, chronic frequent cough, shortness of breath, incontinence and dribbling, joint pain, joint stiffness and swelling, weakness of muscles, muscle cramps, back pain, difficulty walking, depression, bruising tendencies. LABORATORY DATA: No new laboratory values [place] [address] PAIN MANAGEMENT CONSULTATION Name: MARCELLO CARLIN [id number] Admission: 02/16/20 Attend Phys: Nanci Rosario MD Discharge: Date of : 38 Report #: [id number] interview. PAIN CLINIC ASSESSMENT AND PQRS: 1. Height 6 feet 2 inches, weight 222 pounds, BMI is 28. 2. Vital signs: Blood pressure is 176/98, heart rate 65, respiratory rate 18, room air saturation is 91% on 2 liters of oxygen at home. Temperature 98.2. 3. Pain intensity, 8/10. 4. The patient does have some osteoarthritic changes involving his hands, knees, back, fingers. 5. Fall history: The patient has not fallen. 6. Blood thinner. The patient is on a blood thinning medication, Eliquis. 7. History of hypertension. The patient is being treated for hypertension. 8. Opioids greater than 6 weeks. The patient is not on an opioid regimen. 9. Risk assessment tool, low for opioid use. 10. Functional assessment tool reviewed. 11. Recreational drug use: The patient denies. 12. Tobacco: The patient has 50 years smoking history, stopped about 1 year ago. 13. Alcohol. The patient denies frequent use of alcoholic beverages. PHYSICAL EXAMINATION: GENERAL: The patient is a well-developed, well-nourished white male. Appears his stated age. He is alert and oriented x 3. His affect is appropriate. He is wearing a facial covering. NECK: Some decreased range of motion. Upper extremity muscle strength, the patient has bilateral shoulder pain and discomfort involving the left and the right side. LUNGS: Decreased breath sounds. ABDOMEN: Nontender. MUSCULOSKELETAL: Lower extremity, the patient has a well-healed scar in the lower portion of his back. Complains of pain and discomfort with pain that radiates down into his leg and complains of pain and discomfort in the left leg. He has a shunt from the left leg down into the left foot. Has little less than 3 seconds refill time. Complains of some aching and discomfort in this lower extremity. IMPRESSION: 1. Chronic pain in the spine, shoulders, hands, fingers, knees and feet. 2. We discussed treatment options with the patient. At this juncture, we will try a pain medication, Ultram. A script for 50 mg 1 p.o. 2-3 times daily had been provided. Hopefully, this will provide the patient with some benefit. If he has any concerns regarding his breathing or problems with the medications, he should discontinue the use. He should call the pain clinic. [address] [place] [address] PAIN MANAGEMENT CONSULTATION Name: MARCELLO CARLIN Room: [facility]#: [id number] Admission: 02/16/20 Attend Phys: Nanci Rosario MD Discharge: Date of : 38 Report #: [id number] We would like to thank you for letting us participate in his care. We hope he continues to improve. <ELECTRONICALLY SIGNED> By: Nanci Rosario MD 03/08/20 1436 1103 0112N. Regulo Rosario MD /nt
== END ==
LOC: M.PC 07:56
PROVIDERS: ATTEND Anesthesiology Pain Medicine
DX: M79.604 Pain in right leg (principal); M79.605 Pain in left leg; M79.18 Myalgia, other site; I10 Essential (primary) hypertension; Z79.899 Other long term (current) drug therapy

== ENCOUNTER → 2020-03-15 | Outpatient (CLI) | payer MEDICARE, BC ==
[~2020-03-15] MED LIST changes: +HYDROCODON-ACE1 EAC7 PO; +MOVANTIK12.5 MG PO
--- NOTE | 2020-03-16 13:58 | PAINCON ---
[address] [address] PAIN MANAGEMENT CONSULTATION Name: MARCELLO CARLIN Room: [facility] LYNNETTE Arnold#: [id number] Admission: 03/15/20 Attend Phys: Nanci Rosario MD Discharge: Date of : 38 Report #: [id number] THIS REPORT FOR: //name// cc: Kailash Ballard John E. DO ~ CC: Kailash Rosario DATE OF SERVICE: 03/15/2020 CHIEF COMPLAINT: Still having pain in my left leg. HISTORY: The patient is an 79-year-old gentleman, who has been followed in the Pain Clinic. As you may recall, he suffers from peripheral vascular disease. He has had a femoral bypass involving his left leg. Still has significant amounts of pain and discomfort. He is still noticing ischemia. He notes that his foot is still constantly cold. When he stands up to walk on it, it can be quite problematic. He was provided tramadol at the last visit. He feels that this medication has not provided a significant amount of improvement. He did call his primary physician, who also offered him tramadol. He would like to have a more powerful medication to be helpful. He has COPD. He is not using oxygen supply on a regular basis. He does note that if he walks from his house to the mailbox, which is about half a block away, he does end up somewhat short of breath by the time he returns. He does note some increased shortness of breath if he ambulates too quickly. He has had diverticulitis. He noted worsening of his pain when he had opioid medications a number of years ago. He does not want to have constipation at this juncture. He would like a medication that would be helpful if we had one. He has been sleeping a lot. He rates his pain as an 8/10 with walking. He does note that his left foot is cold. ALLERGIES: No known drug allergies. CURRENT MEDICATIONS: Aspirin, Symbicort 160/4.5 two puffs b.i.d., tiotropium bromide 2.5 mg inhaler, Eliquis 5 mg b.i.d., Lipitor 80 mg, metoprolol 12.5 mg, Flomax, losartan 25 mg, tramadol 50 mg 1 p.o. t.i.d. PAIN CLINIC ASSESSMENT AND PQRS: 1. The patient's height is 6 feet 2 inches, weight is 222 pounds, BMI is 28. 2. Vital Signs: Blood pressure 157/76, heart rate 63, respiratory rate 20, room air saturation 92% with COPD, temperature 97.9. 3. Pain intensity: 8/10. 4. Fall history: The patient has not fallen since we saw him last. 5. The patient does have some arthritic changes in his hands, knees, back, and fingers. 6. Blood thinner: The patient is on Eliquis. 7. Risk assessment tool: [place] [address] PAIN MANAGEMENT CONSULTATION Name: MARCELLO CARLIN [facility] [id number] Admission: 03/15/20 Attend Phys: Nanci Rosario MD Discharge: Date of : 38 Report #: [id number] 8. Functional assessment tool: Reviewed. 9. Recreational drug use: The patient denies. 10. Tobacco: The patient has a 50-year history of smoking, stopped 1 year ago. 11. Alcohol: The patient denies frequent use of alcoholic beverages. PHYSICAL EXAMINATION: GENERAL: The patient is a well-developed, well-nourished, white male. Appears his stated age. He is alert and oriented x 3. His affect is appropriate. He is wearing a facial covering. NECK: Without adenopathy or JVD. The patient does complain of bilateral shoulder pain in the left and right side. LUNGS: Decreased breath sounds. ABDOMEN: Nontender. MUSCULOSKELETAL: Upper extremity muscle strength shows a well-healed scar in the lower portion of his back. He has pain and discomfort that radiates down to his left leg. He notes some increased pain when going from a sitting to a standing position and placing weight on his left leg. He has slow capillary refill approximately of less than 3 seconds. He complains of aching discomfort and extreme cold in the left foot. IMPRESSION: Chronic pain in the spine, shoulders, hands, fingers, knees and feet. DISCUSSION AND PLAN: Discussed the use of pain medications to help with his pain. The patient did try Ultram, he did not feel this medication was very effective. We will try to provide the patient with a more effective pain reliever. The patient will try hydrocodone 5 mg 1 p.o. b.i.d. He also is concerned about constipation. The patient will use Movantik 12.5 mg daily. He will also continue with tramadol. We would like to thank you for letting us participate in his care. We hope he continues to improve. <ELECTRONICALLY SIGNED> By: Nanci Rosario MD 03/16/20 1358 0945 2136N. Regulo Rosario MD /nt
== END ==
LOC: M.PC 07:57
PROVIDERS: ATTEND Anesthesiology Pain Medicine
DX: G89.4 Chronic pain syndrome (principal); Z79.899 Other long term (current) drug therapy

== ENCOUNTER 2021-06-15 09:22 | Inpatient (IN) | payer MEDICARE, BC ==
[~2021-06-15] VITALS: Ht 185.4 cm; Wt 91.6 kg
[~2021-06-15 09:22] MED LIST changes: +LIPITOR40 MG PO; -LIPITOR80 MG PO
[2021-06-15 09:37] VITALS: BP 83/49
[2021-06-15] MEDS ORDERED: PLAVIX 75 MG TA75 MG PO (09:37)
[2021-06-15] MEDS ORDERED: ACETAMINOPHEN325 MG PO (09:37)
[2021-06-15] MEDS ORDERED: CALCIUM500 MG PO (09:37)
[2021-06-15] MEDS ORDERED: TRELEGY ELLIPT1 EACH INH (09:37)
[2021-06-15 09:50] LABS: ABSOLUTE BASOPHILS 0.2 thou/uL (0.0-0.2); ABSOLUTE LYMPHOCYTES 1.2 thou/uL (0.8-5.3); ABSOLUTE MONOCYTES 2.2 thou/uL (0.0-1.2); ABSOLUTE NEUTROPHILS 27.8 thou/uL (1.6-8.1); BASOPHILS 0.6 %; EOSINOPHILS 0.1 %; HEMATOCRIT 33.9 % (42.0-52.0); HEMOGLOBIN 10.6 gm/dL (14.0-18.0); LYMPHOCYTES 3.7 %; MCH 26.2 pg (26.0-34.0); MCHC 31.3 g/dL (28.0-37.0); MCV 83.8 fL (80.0-100.0); MONOCYTES 6.9 %; MPV 10.1 fl. (7.2-11.1); NUCLEATED RBCS 0 /100WBC; PLATELET COUNT* 270 thou/uL (150-400); POLYS 88.7 %; RBC 4.04 mil/uL (4.50-6.00); RDW-CV 17.5 % (10.5-14.5); WBC 31.3 thou/uL (4.0-11.0)
[2021-06-15 09:55] LABS: CREATININE 1.8 mg/dL (0.6-1.3)
[2021-06-15 09:59] LABS: ALBUMIN 2.9 g/dL (3.4-5.0); MAGNESIUM 1.7 mg/dL (1.8-2.4); TOTAL BILIRUBIN 0.9 mg/dL (<0.1-1.0); TOTAL PROTEIN 6.5 g/dL (6.4-8.2)
--- NOTE | 2021-06-15 10:56 | NUR ---
DAUGHTER EMY CALLED. TRIED TO CALL HER BACK BUT WENT TO VOICE MAIL. LEFT MY NAME AND PHONE NUMBER WAITING FOR CALL BACK.
[2021-06-15 10:58] VITALS: BP 101/59
[2021-06-15 11:40] VITALS: BP 100/52
[2021-06-15 16:04] VITALS: BP 121/61
[2021-06-15 20:00] VITALS: BP 138/65
[2021-06-16] VITALS: BP 111/54
[2021-06-16 04:00] VITALS: BP 115/64
[2021-06-16 05:34] LABS: HEMATOCRIT 29.9 % (42.0-52.0); HEMOGLOBIN 9.2 gm/dL (14.0-18.0); MCH 26.1 pg (26.0-34.0); MCHC 30.7 g/dL (28.0-37.0); MCV 85.1 fL (80.0-100.0); MPV 10.2 fl. (7.2-11.1); RBC 3.51 mil/uL (4.50-6.00); RDW-CV 17.7 % (10.5-14.5)
[2021-06-16 05:47] LABS: WBC 16.1 thou/uL (4.0-11.0)
[2021-06-16 06:11] LABS: ALBUMIN 2.6 g/dL (3.4-5.0); CALCIUM 7.3 mg/dL (8.5-10.1); CREATININE 1.3 mg/dL (0.6-1.3); POTASSIUM 3.7 mmol/L (3.5-5.1); TOTAL BILIRUBIN 0.3 mg/dL (<0.1-1.0); TOTAL PROTEIN 6.1 g/dL (6.4-8.2)
[2021-06-16 08:00] VITALS: BP 115/59
--- NOTE | 2021-06-16 11:14 | EKG ---
[place] [address] ELECTROCARDIOGRAM REPORT Name: MARCELLO CARLIN Room: [address] ADM IN ..#: [id number] Admission: 06/15/21 Attend Phys: Corine Freedman, Discharge: Date of : 38 Date of Service: 06/15/21 0942 Report #: [id number] THIS REPORT FOR: //name// [facility] ED Test Date: 2021-06-15 Test Time: 09:42:42 Pat Name: MARCELLO CARLIN Department: Room: [address] Gender: M Ux Ui Designer: KF : 1940 Requested By: Saeed Sánchez Order Number: [id number] MD: Kailash Nina Measurements Intervals [place] Rate: 114 P: NC: QRS: 53 QRSD: 97 T: 67 QT: 349 QTc: 481 Interpretive Statements Atrial fibrillation Anteroseptal infarct, old possible Repol abnrm, which may reflect rate related ischemia Artifact in lead(s) I,II,III,aVR,aVL,V1,V2,V3,V4,V5,V6 Compared to ECG 10/03/2018 04:18:51 Myocardial infarct finding now possible Early repolarization now present Possible ischemia now present Sinus rhythm no longer present Electronically Signed On 06-16-2021 11:13:54 COMMISSIONER OF OFFICIALS by Kailash Nina [email or web address] <ELECTRONICALLY SIGNED> By: Kailash Nina MD, [facility] 06/16/21 1113 1 0942 Kailash Nina MD, [facility] /EPI
--- NOTE | 2021-06-16 11:15 | EKG ---
[place] [address] ELECTROCARDIOGRAM REPORT Name: MARCELLO CARLIN Room: [address] ADM IN .R.#: [id number] Admission: 06/15/21 Attend Phys: Corine Freedman, Discharge: Date of : 38 Date of Service: 06/15/21 0943 Report #: [id number] THIS REPORT FOR: //name// [facility] ED Test Date: 2021-06-15 Test Time: 09:43:45 Pat Name: MARCELLO CARLIN Department: Room: [address] Gender: M Construction Mgr: KF : 1940 Requested By: Saeed Sánchez Order Number: [id number] MD: Kailash Nina Measurements Intervals [place] Rate: 114 P: 0 NJ: 148 QRS: 63 QRSD: 91 T: -7 QT: 350 QTc: 483 Interpretive Statements Atrial fibrillation with a mildly tachycardic ventricular response Left ventricular hypertrophy Repol abnormality; consider ischemia Compared to ECG 06/15/2021 09:42:42 Left ventricular hypertrophy now present Atrial fibrillation persists Myocardial infarct finding no longer present Possible ischemia still present Electronically Signed On 06-16-2021 11:15:04 WEB DESIGN SPECIALIST by Kailash Nina [email or web address] <ELECTRONICALLY SIGNED> By: Kailash Nina MD, [facility] 06/16/21 1115 0943 Kailash Nina MD, [facility] /EPI
[2021-06-16 12:00] VITALS: BP 112/62
--- NOTE | 2021-06-16 15:24 | 2DMMODE ---
[place] [address] 2 D/M-MODE ECHOCARDIOGRAM Name: RAEGANMARCELLO Room: 108-D ADM IN .Kaela.#: [id number] Admission: 06/15/21 Attend Phys: Corine Freedman, Discharge: Date of : 38 Date of Service: 06/16/21 1524 Report #: [id number] THIS REPORT FOR: cc: Kailash Ballard John E. DO Holkins,Kailash Howell MD [facility]ED WITH [facility] ~ APPROVED REPORT Study performed: 06/16/2021 09:40:37 EXAM: Comprehensive 2D, Doppler, and color-flow Echocardiogram Patient Location: In-Patient Room #: 108 Status: routine BSA: 2.16 HR: 90 bpm BP: 115/64 mmHg Rhythm: NSR Other Information Study Quality: Good Indications Elevated Troponin 2D Dimensions IVSd: 11.16 (7-11mm) LVOT Diam: 24.77 (18-24mm) LVDd: 51.66 mm PWd: 9.57 (7-11mm) Ascending Ao: 39.44 (22-36mm) LVDs: 25.47 (25-40mm) Aortic Root: 41.01 mm Volumes Left Atrial Volume (Systole) LA ESV Index: 31.70 mL/m2 Aortic Valve AoV Peak Hawk.: 1.71 m/s AO Peak Gr.: 11.71 mmHg LVOT Max P.15 mmHg AO Mean Gr.: 5.72 mmHg LVOT Mean P.74 mmHg LVOT Max V: 1.67 m/s AO V2 VTI: 28.64 cm LVOT Mean V: 0.98 m/s YANNA (VTI): 4.49 cm2 LVOT V1 VTI: 26.69 [place] [address] 2 D/M-MODE ECHOCARDIOGRAM Name: MARCELLO CARLIN Room: [address] IN ..#: [id number] Admission: 06/15/21 Attend Phys: Corine Freedman, Discharge: Date of : 38 Date of Service: 06/16/21 1524 Report #: [id number] Mitral Valve E/A Ratio: 0.68 MV Decel. Time: 207.19 ms MV E Max Hawk.: 0.94 m/s MV PHT: 60.09 ms MVA (PHT): 3.66 cm2 TDI E/Lateral E': 10.44 Lateral E' Hawk.: 0.09 m/s Pulmonary Valve PV Peak Hawk.: 1.05 m/s PV Peak Gr.: 4.42 mmHg Left Ventricle The left ventricle is normal size. There is normal LV segmental wall motion. There is normal left ventricular wall thickness. Left ventricular systolic function is normal. The left ventricular ejection fraction is within the normal range. LVEF is 60-65%. Grade I - abnormal relaxation pattern. Right Ventricle Right ventricle is at the upper limits of normal. The right ventricular systolic function is normal. Atria The left atrium size is normal. Right atrium is at the upper limits of normal. Aortic Valve Mild aortic valve sclerosis. No aortic regurgitation is present. There is no aortic valvular stenosis. Mitral Valve The mitral valve is normal in structure. There is no mitral valve regurgitation noted. No evidence of mitral valve stenosis. Tricuspid Valve The tricuspid valve is normal in structure. Trace tricuspid regurgitation. Unable to assess PA pressure. Pulmonic Valve The pulmonary valve is normal in structure. There is no pulmonic valvular regurgitation. [place] [address] 2 D/M-MODE ECHOCARDIOGRAM Name: RAEGANMARCELLO Room: [address] IN [facility]#: [id number] Admission: 06/15/21 Attend Phys: Corine Freedman, Discharge: Date of : 38 Date of Service: 06/16/21 1524 Report #: [id number] The aortic root is normal in size. IVC is normal in size and collapses >50% with inspiration. Pericardium There is no pericardial effusion. <Conclusion> The left ventricle is normal size. There is normal left ventricular wall thickness. Left ventricular systolic function is normal. The left ventricular ejection fraction is within the normal range. LVEF is 60-65%. Grade I - abnormal relaxation pattern. Right ventricle is at the upper limits of normal. The right ventricular systolic function is normal. The left atrium size is normal. Right atrium is at the upper limits of normal. Mild aortic valve sclerosis. No aortic regurgitation is present. There is no aortic valvular stenosis. The mitral valve is normal in structure. The tricuspid valve is normal in structure. IVC is normal in size and collapses >50% with inspiration. There is normal LV segmental wall motion. <ELECTRONICALLY SIGNED> By: Kailash Nina MD, FACC 06/16/21 1524 1524 1524 Kailash Nina MD, FACC /INF
[2021-06-16 16:05] VITALS: BP 106/52
--- NOTE | 2021-06-16 17:40 | NUR ---
CM ATTEMTPED TO COMPLETE ASSESSMENT WITH CONTACT ( [phone]) BUT THE PHONE WAS NOT IN SERVICE. CM TO ATTMEPT AGAIN. PT NOT MED CLEAR AND EXPECTED TO REMAIN AT [facility] THROUGH THE WEEKEND.
[2021-06-16 20:43] VITALS: BP 102/55
[2021-06-17 00:38] VITALS: BP 136/63
[2021-06-17 04:00] VITALS: BP 137/67
[2021-06-17 04:19] LABS: HEMATOCRIT 27.1 % (42.0-52.0); HEMOGLOBIN 8.4 gm/dL (14.0-18.0); MCH 26.7 pg (26.0-34.0); MCHC 30.9 g/dL (28.0-37.0); MCV 86.3 fL (80.0-100.0); MPV 10.1 fl. (7.2-11.1); RBC 3.14 mil/uL (4.50-6.00); RDW-CV 17.7 % (10.5-14.5); WBC 17.2 thou/uL (4.0-11.0)
[2021-06-17 04:23] LABS: ALBUMIN 2.5 g/dL (3.4-5.0); ALKALINE PHOSPHATASE 51 U/L (46-116); ANION GAP 10 mmol/L (7-16); BUN 39 mg/dL (7-18); CALCIUM 7.4 mg/dL (8.5-10.1); CHLORIDE 107 mmol/L (98-107); CHOLESTEROL 73 mg/dL (<200); CO2 23 mmol/L (21-32); CREATININE 1.3 mg/dL (0.6-1.3); GLUCOSE 137 mg/dL (70-99); HDL CHOLESTEROL 41 mg/dL (>40); LDL CHOLESTEROL 29 mg/dL (<100); POTASSIUM 3.7 mmol/L (3.5-5.1); SGOT 11 U/L (15-37); SGPT 13 U/L (30-65); SODIUM 140 mmol/L (136-145); TC:HDL 1.8 Ratio (Not establshd); TOTAL BILIRUBIN 0.3 mg/dL (<0.1-1.0); TOTAL PROTEIN 5.7 g/dL (6.4-8.2); TRIGLYCERIDE 16 mg/dL (<150); VLDL 3 mg/dL (<40)
[2021-06-17 04:24] LABS: SERUM ASSESSMENT Clear
[2021-06-17 11:42] VITALS: BP 121/56
--- NOTE | 2021-06-17 14:41 | NUR ---
AT 1350 PATIENT ASSISTED UP TO CHAIR AT BEDSIDE.
[2021-06-17 16:20] VITALS: BP 126/73
--- NOTE | 2021-06-17 18:32 | NUR ---
PATIENT HAD A GOOD DAY. OIENTED. DOES GET UP WITH WALKER, ND DOES WELL. UP TO CHAIR IN ROOM. PATIENT HAS NEW IV LFA. PATIENT CONTINUE TO GET ANTIBIOTIS ORDERED. PATIENT IS DOING WELL. BREATH SOUNDS ARE DIMINISHED BILATERALLY.
[2021-06-17 20:00] VITALS: BP 124/57
[2021-06-18] VITALS: BP 132/72
[2021-06-18 03:41] LABS: MCV 83.8 fL (80.0-100.0)
[2021-06-18 03:46] LABS: HEMATOCRIT 25.9 % (42.0-52.0); HEMOGLOBIN 8.2 gm/dL (14.0-18.0); MCH 26.6 pg (26.0-34.0); MCHC 31.7 g/dL (28.0-37.0); MPV 9.7 fl. (7.2-11.1); RBC 3.09 mil/uL (4.50-6.00); RDW-CV 17.8 % (10.5-14.5); WBC 10.6 thou/uL (4.0-11.0)
[2021-06-18 03:52] VITALS: BP 135/66
[2021-06-18 04:01] LABS: ALBUMIN 2.4 g/dL (3.4-5.0); CALCIUM 7.5 mg/dL (8.5-10.1); CREATININE 1.2 mg/dL (0.6-1.3); MAGNESIUM 1.9 mg/dL (1.8-2.4); TOTAL BILIRUBIN 0.4 mg/dL (<0.1-1.0); TOTAL PROTEIN 5.4 g/dL (6.4-8.2)
[2021-06-18 08:00] VITALS: BP 140/64
[2021-06-18 12:15] VITALS: BP 115/60
[2021-06-18 16:00] VITALS: BP 125/66
--- NOTE | 2021-06-18 18:41 | NUR ---
THIS PATIENT IS HERE WITH COVID AND BILATERAL PNEUMONIA. PATIENT DOING WELL. CHEST X-RAY FROM TODAY WAS IMPROVED. PATIENT IS ON 2 LITERS PER NC. PATIENT IS STILL GETTING ANTIBIOTICS IV. PATIENT IS UP IN ROOM USING WALKER, AND DOES WELL. DID EXPLAIN TO PATIENT NEED FOR STOOL SAMPLE.
[2021-06-19] VITALS: BP 133/63
[2021-06-19 04:00] VITALS: BP 160/72
[2021-06-19 05:21] LABS: ABSOLUTE LYMPHOCYTES 0.8 thou/uL (0.8-5.3); ABSOLUTE NEUTROPHILS 6.9 thou/uL (1.6-8.1); BASOPHILS 0.1 %; HEMATOCRIT 27.2 % (42.0-52.0); HEMOGLOBIN 8.6 gm/dL (14.0-18.0); LYMPHOCYTES 9.3 %; MCH 26.7 pg (26.0-34.0); MCHC 31.7 g/dL (28.0-37.0); MCV 84.4 fL (80.0-100.0); MONOCYTES 11.4 %; MPV 10.1 fl. (7.2-11.1); NUCLEATED RBCS 0 /100WBC; PLATELET COUNT* 276 thou/uL (150-400); POLYS 79.2 %; RBC 3.22 mil/uL (4.50-6.00); RDW-CV 17.7 % (10.5-14.5); WBC 8.7 thou/uL (4.0-11.0)
[2021-06-19 05:46] LABS: ALBUMIN 2.6 g/dL (3.4-5.0); CALCIUM 7.7 mg/dL (8.5-10.1); CREATININE 1.3 mg/dL (0.6-1.3); POTASSIUM 4.4 mmol/L (3.5-5.1); TOTAL BILIRUBIN 0.4 mg/dL (<0.1-1.0); TOTAL PROTEIN 5.6 g/dL (6.4-8.2)
[2021-06-19 08:00] VITALS: BP 152/70
--- NOTE | 2021-06-19 10:45 | EKG ---
[place] [address] ELECTROCARDIOGRAM REPORT Name: MARCELLO CARLIN Room: [address] ADM IN .R.#: [id number] Admission: 06/15/21 Attend Phys: Corine Freedman, Discharge: Date of : 36 Date of Service: 06/17/21 1342 Report #: [id number] THIS REPORT FOR: //name// [facility] Test Date: 2021-06-17 Test Time: 13:42:59 Pat Name: MARCELLO CARLIN Department: Room: [address] Gender: M Credit Support Counselor: SABRINA : 1940 Requested By: Lili Wilde Order Number: [id number] Reading MD: Jaron Tang Measurements Intervals [place] Rate: 86 P: -51 DC: 185 QRS: 44 QRSD: 105 T: 218 QT: 366 QTc: 438 Interpretive Statements Sinus or ectopic atrial rhythm Abnormal R-wave progression, early transition Repol abnrm suggests ischemia, diffuse leads Compared to ECG 06/15/2021 09:43:45 Ectopic atrial rhythm now present Atrial fibrillation no longer present Left ventricular hypertrophy no longer present Possible ischemia still present Electronically Signed On 06-19-2021 10:45:43 HOT STRIP FINISHER by Jaron Tang [email or web address] <ELECTRONICALLY SIGNED> By: Jaron Tang MD, [facility] 06/19/21 1045 41 1342 Jaron Tang MD, [facility] /EPI
[2021-06-19] MEDS ORDERED: DEXAMETHASONE1 MG PO (10:49)
[2021-06-19] MEDS ORDERED: DOXYCYCLINE 10100 MG PO (10:57)
[2021-06-19] MEDS ORDERED: PROTONIX40 M2 PO (10:57)
[2021-06-19 12:00] VITALS: BP 152/77
[2021-06-19] MEDS ORDERED: NITROGLYCERIN0.4 MG SUBLING (13:14)
[2021-06-19] MEDS ORDERED: IMDUR 30 MG TAB30 M1 PO (13:14)
--- NOTE | 2021-06-19 16:44 | NUR ---
CM ATTMPTED TO CONTACT PT VIA ROOM PHONE AND PT (TRISTIN [phone]) TO COMPLETE ASSESSMENT. CM UNABLE TO MAKE CONTACT WITH EITHER CONSTITUTION PARTY. PT COMPLETED REST/EX TEST WHICH INDICATED NEED FOR 8L O2 WITH ACTIVITY. PT NOT MED CLEAR FOR DC DUE TO REST/EX TESTING RESULTS. CM TO FOLLOW.
[2021-06-19 20:00] VITALS: BP 153/76
[2021-06-19 23:30] VITALS: BP 98/65
[2021-06-20 03:53] VITALS: BP 165/80
[2021-06-20 04:54] LABS: ABSOLUTE LYMPHOCYTES 1.4 thou/uL (0.8-5.3); ABSOLUTE MONOCYTES 1.4 thou/uL (0.0-1.2); ABSOLUTE NEUTROPHILS 9.4 thou/uL (1.6-8.1); BASOPHILS 0.1 %; EOSINOPHILS 0.1 %; HEMATOCRIT 26.9 % (42.0-52.0); HEMOGLOBIN 8.3 gm/dL (14.0-18.0); LYMPHOCYTES 11.4 %; MCH 26.2 pg (26.0-34.0); MCHC 30.7 g/dL (28.0-37.0); MCV 85.3 fL (80.0-100.0); MONOCYTES 11.3 %; MPV 9.9 fl. (7.2-11.1); NUCLEATED RBCS 0 /100WBC; PLATELET COUNT* 274 thou/uL (150-400); POLYS 77.1 %; RBC 3.15 mil/uL (4.50-6.00); RDW-CV 17.6 % (10.5-14.5); WBC 12.2 thou/uL (4.0-11.0)
[2021-06-20 05:16] LABS: ALBUMIN 2.6 g/dL (3.4-5.0); CALCIUM 7.8 mg/dL (8.5-10.1); CREATININE 1.2 mg/dL (0.6-1.3); POTASSIUM 3.8 mmol/L (3.5-5.1); TOTAL BILIRUBIN 0.4 mg/dL (<0.1-1.0); TOTAL PROTEIN 5.3 g/dL (6.4-8.2)
[2021-06-20 07:40] VITALS: BP 156/77
[2021-06-20 11:55] VITALS: BP 132/68
[2021-06-20 15:40] VITALS: BP 132/68
[2021-06-20 16:04] VITALS: BP 132/68
--- NOTE | 2021-06-20 16:55 | NUR ---
CM FOLLOWUP PT MED CLEAR FOR DC HOME WITH HH TO BE PROVIDED BY [facility] [phone] AND OXYGEN TO CONTINUE TO BE PROVIDED BY [facility] [phone].
== END 2021-06-20 16:26 | disposition home health service (06) | DRG 177 ==
LOC: M.ERS 09:22 → M.ORTHSURG 10:21 → M.TBA-ER 10:21 → M.ORTHSURG 11:16
PROVIDERS: Emergency Medicine Emergency Medical Services; Internal Medicine; Registered Nurse; ADMIT Internal Medicine; ATTEND Internal Medicine
PROC: XW033E5 Introduction of Remdesivir Anti-infective into Peripheral Vein, Percutaneous Approach, New Technology Group 5 (ICD-10-PCS; principal; 2021-06-16)
DX: U07.1 COVID-19 (principal); J15.6 Pneumonia due to other Gram-negative bacteria; J12.82 Pneumonia due to coronavirus disease 2019; J96.21 Acute and chronic respiratory failure with hypoxia; N17.9 Acute kidney failure, unspecified; R65.10 Systemic inflammatory response syndrome (SIRS) of non-infectious origin without acute organ dysfunction; J44.0 Chronic obstructive pulmonary disease with (acute) lower respiratory infection; J44.1 Chronic obstructive pulmonary disease with (acute) exacerbation; Z79.899 Other long term (current) drug therapy; I12.9 Hypertensive chronic kidney disease with stage 1 through stage 4 chronic kidney disease, or unspecified chronic kidney disease; N18.9 Chronic kidney disease, unspecified; D50.9 Iron deficiency anemia, unspecified; I48.0 Paroxysmal atrial fibrillation; Z79.01 Long term (current) use of anticoagulants; D64.9 Anemia, unspecified; I95.9 Hypotension, unspecified; I73.9 Peripheral vascular disease, unspecified

== ENCOUNTER 2021-06-26 09:00 | Emergency (ER) | payer MEDICARE, BC ==
[~2021-06-26] VITALS: Ht 185.4 cm; Wt 90.7 kg
[~2021-06-26 09:00] MED LIST changes: +ACETAMINOPHEN325 MG PO; +CALCIUM500 MG PO; +DEXAMETHASONE1 MG PO; +DOXYCYCLINE 10100 MG PO; +IMDUR 30 MG TAB30 M1 PO; +NITROGLYCERIN0.4 MG SUBLING; +PLAVIX 75 MG TA75 MG PO; +PROTONIX40 M2 PO; +TRELEGY ELLIPT1 EACH INH
[2021-06-26] MEDS ORDERED: MAGIC MOUTHWASH SWISH&SPIT (10:02)
[2021-06-26 10:29] VITALS: BP 145/70
== END 2021-06-26 10:29 | disposition home or self-care (01) ==
LOC: M.ERS 09:00
DX: K12.1 Other forms of stomatitis (principal); I10 Essential (primary) hypertension; J44.9 Chronic obstructive pulmonary disease, unspecified; F17.210 Nicotine dependence, cigarettes, uncomplicated; Z79.899 Other long term (current) drug therapy